=== PATIENT | male | born 1955 | race Caucasian/White ===

== ENCOUNTER 2018-06-12 06:01 | Observation (INO) | payer OTHER ==
[2018-06-12] MEDS ORDERED: ceFAZolin 2 GM/DEXTROSE 100 ML IV ONE (06:16)
[2018-06-12] MEDS ORDERED: OPIUM/BELLADONNA ALKALO SUPP PR PRN (06:16)
[2018-06-12] MEDS ORDERED: LR 1,000 ML IV ONE (06:17)
[2018-06-12] MEDS ORDERED: LIDOCAINE 2% JELLY 20 ML (UROJECT) ONE ×2 (07:06→08:22)
--- NOTE | 2018-06-12 07:23 | PDHPUP ---
History & Physical Update H&P update statement: This history and physical update is based on an assessment of the patient which was completed after admission or registration (within 24 hours), but prior to the surgery/procedure. H&P update: H&P reviewed & patient examined, no change in patient's condition since H&P completed
[2018-06-12] MEDS ORDERED: MIDAZOLAM 2 MG/2 ML VIAL ONE (07:24)
--- NOTE | 2018-06-12 07:29 | PDANEPAE ---
ANE History of Present Illness Prostate enlargement and here for TURP ANE Past Medical History - Cardiovascular History Hx Hypertension: No Hx Arrhythmias: No Hx Chest Pain: No Hx Coronary Artery / Peripheral Vascular Disease: No Hx CHF / Valvular Disease: Yes Hx Palpitations: No Cardiovascular History Comment: heart murmur - Pulmonary History Hx COPD: No Hx Asthma/Reactive Airway Disease: No Hx Recent Upper Respiratory Infection: No Hx Oxygen in Use at Home: No Hx Sleep Apnea: No Sleep Apnea Screening Result - Last Documented: Negative - Neurologic History Hx Cerebrovascular Accident: No Hx Seizures: No Hx Dementia: No - Endocrine History Hx Diabetes: No - Renal History Hx Renal Disorders: No - Liver History Hx Hepatic Disorders: No - Neurological & Psychiatric Hx Hx Neurological and Psychiatric Disorders: No - Cancer History Hx Cancer: No - Congenital Disorder History Hx Congenital Disorders: Yes Congenital History Comment: bipolar - GI History Hx Gastrointestinal Disorders: No Gastrointestinal History Comment: colonoscopy - Other Health History Other Health History: cataract sx - Chronic Pain History Chronic Pain: Yes (tendonitis) - Surgical History Prior Surgeries: colonoscopy ANE Review of Systems Review of Systems: - Exercise capacity METS (RN): 6 METS ANE Patient History - Allergies Allergies/Adverse Reactions: No Known Allergies Allergy (Verified 06/03/18 18:17) - Home Medications Home Medications: NK [No Known Home Meds] 06/03/18 [Last Taken Unknown] - NPO status NPO Since - Liquids (Date): 06/11/18 NPO Since - Liquids (Time): 21:00 NPO Since - Solids (Date): 06/11/18 NPO Since - Solids (Time): 21:00 - Smoking Hx Smoking Status: Former smoker - Family Anes Hx Family Hx Anesthesia Complications: none ANE Labs/Vital Signs - Vital Signs Blood Pressure: 128/93 Heart Rate: 61 Respiratory Rate: 16 O2 Sat (%): 97 Height: 175.26 cm Weight: 71.668 kg ANE Physical Exam - Airway Neck exam: FROM Mallampati Score: Class 2 Mouth exam: normal dental/mouth exam - Pulmonary Pulmonary: no respiratory distress, no rales or rhonchi - Cardiovascular Cardiovascular: regular rate and rhythym, no murmur, rub, or gallop - ASA Status ASA Status: II ANE Anesthesia Plan Anesthesia Plan: general endotracheal anesthesia, GA w LMA Total IV Anesthesia: Yes
[2018-06-12] MEDS ORDERED: MIDAZOLAM 2 MG/2 ML VIAL IVP ONE (07:32)
[2018-06-12] MEDS ORDERED: LIDOCAINE 2% 100 MG/5 ML SYR ONE (07:38)
[2018-06-12] MEDS ORDERED: PROPOFOL 200 MG/20 ML VIAL ONE (07:38)
[2018-06-12] MEDS ORDERED: fentaNYL 250 MCG/5 ML INJ ONE (07:38)
[2018-06-12] MEDS ORDERED: DEXAMETHASONE 4 MG/ML VIAL ONE (08:43)
[2018-06-12] MEDS ORDERED: HYDROmorphONE/DILAUDID 2 MG/ML INJ ONE (08:43)
[2018-06-12] MEDS ORDERED: ONDANSETRON 4 MG/2 ML VIAL ONE (08:43)
[2018-06-12] MEDS ORDERED: PHENYLEPHRINE HCL 100 MCG/ML SYR ONE (08:43)
[2018-06-12] MEDS ORDERED: ePHEDrine SULFATE 25 MG/5 ML SYR ONE (08:43)
--- NOTE | 2018-06-12 09:24 | POSTOPPROG ---
Post Op Note Date of Operation: 06/12/18 Surgeon: Christine Robles Anesthesiologist: Nena Anesthesia: GET(General Endotracheal) Pre-op Diagnosis: BPH w trilobar hypertrophy, LUTs Post-op Diagnosis: same Indication: BPH w trilobar hypertrophy, LUTs Procedure: cystoscopy, TURP in saline Findings: BPH w trilobar hypertrophy, LUTs Inf/Abcess present in the surg proc area at time of surgery?: No EBL: 100-500 Complications: none patient tolerated procedure well Drains: Other (hodges) Specimen(s): prostate chips
[2018-06-12] MEDS ORDERED: OPIUM/BELLADONNA ALKALO SUPP PR ONE (09:28)
[2018-06-12] MEDS ORDERED: HYDROCODONE/APAP 5/325 TAB PO PRN (09:30)
[2018-06-12] MEDS ORDERED: ONDANSETRON 4 MG/2 ML VIAL IVP PRN (09:30)
--- NOTE | 2018-06-12 12:40 | POSTANESTH ---
Post Anesthetic Evaluation Cardiovascular Status: Normal, Stable Respiratory Status: Normal, Stable Level of Consciousness/Mental Status: Can Participate in Eval, Mildly Sleepy, Arousable Pain Control: Adequate, Prn Tx Ordered Nausea/Vomiting Control: Adequate, Prn Tx Ordered Complications Possibly Related to Anesthesia: None Noted
[2018-06-12] MEDS: ceFAZolin 2 GM/DEXTROSE 100 ML IV SCH ×2 (15:48→23:31)
[2018-06-12] MEDS: D5W LR 1,000 ML IV SCH (15:48)
[2018-06-12] MEDS ORDERED: HYDROmorphONE/DILAUDID 1 MG/ML INJ IVP PRN (16:00)
[2018-06-12] MEDS: SENNOSIDES/DOCUSATE SODIUM TAB PO SCH (20:03)
[2018-06-12] MEDS: LITHIUM OROTATE PO SCH (20:08)
[2018-06-12] MEDS ORDERED: ACETAMINOPHEN 325 MG TAB PO PRN (20:44)
[2018-06-13] MEDS: D5W LR 1,000 ML IV SCH (01:18)
[2018-06-13 07:50] VITALS: BP 113/85
[2018-06-13] MEDS ORDERED: LIDOCAINE 2% JELLY 20 ML (UROJECT) UR ONE (09:00)
[2018-06-13] MEDS: SENNOSIDES/DOCUSATE SODIUM TAB PO SCH (09:01)
[2018-06-13] MEDS: ceFAZolin 2 GM/DEXTROSE 100 ML IV SCH (09:01)
[2018-06-13] MEDS: LITHIUM OROTATE PO SCH (09:02)
--- NOTE | 2018-06-13 09:05 | GOP ---
[f rep st] OPERATIVE REPORT DATE OF OPERATION: 06/12/2018 SURGEON: Christine Robles MD ANESTHESIA: General. ANESTHESIOLOGIST: Dr. Anitra Barrett. PREOPERATIVE DIAGNOSIS: Benign prostatic hypertrophy with lower urinary tract symptoms. POSTOPERATIVE DIAGNOSIS: Benign prostatic hypertrophy with lower urinary tract symptoms. PROCEDURE PERFORMED: Cystoscopy, transurethral resection of prostate in saline. FINDINGS: trilobar hypertrophy SPECIMENS: Prostate chips. ESTIMATED BLOOD LOSS: 150 mL. INDICATIONS: BPH with lower urinary tract symptoms and trilobar hypertrophy. DESCRIPTION OF PROCEDURE: The patient was seen in the preoperative holding area where the procedure was discussed again and consent verified and verification of antibiotics was ordered. He was taken back to the cystoscopy suite, placed on the cystoscopy table in the supine position. General anesthesia induced without complication. Time-out performed. Core measures satisfied, including placement of a Gwen Hugger, SCDs and administration of 2 g Ancef antibiotics. He was brought to the end of the table, placed in a dorsal lithotomy position. All pressure points padded. Genitalia draped and prepped in a standard surgical fashion with Betadine. The distal urethral meatus was dilated gently with [place] sounds up to a 28-Icelandic. Then, the 26-Icelandic visual obturator easily cannulated the urethral meatus and was advanced atraumatically in the urethra past the prostatic urethra and into the bladder. Visual confirmation made of trilobar hypertrophy with a significant central zone tissue protruding into the bladder. The resectoscope was assembled with a loop. The ureteral orifices were difficult to see due to the median lobe projecting into the bladder. Resection began at the 5 o'clock and 7 o'clock positions and the central zone was then taken down from the bladder neck to just proximal to the veru. At this point, I was easily able to see the ureteral orifices and stayed well away from these structures as to not violate these structures. I also was able to see the veru and also stayed proximal to this during the entire resection as to not violate tissue at or distal to the veru. After the posterior adenoma was taken down, attention was focused on the left lateral lobe, the right lateral lobe and then the anterior. He had quite a bit of central zone tissue and posterior zone tissue and this was the bulk of his obstruction. Then, electrocautery was used liberally throughout the procedure to maintain hemostasis. Ellik evacuator was used several times to extract the TURP chips from the bladder. At the end of the procedure, I was able to sit at the veru and look into the bladder and looked directly into the bladder without any obstruction. Hemostasis was excellent. All the chips had been removed and I felt he had a very thorough resection. The veru and UOs were evaluated and not violated with the resectoscope. The scope was removed and then lidocaine jelly placed per urethra and then a 24 three-way catheter placed without difficulty with return of light pink urine. Balloon was inflated to 40 mL of sterile water. The bladder was hand irrigated with normal saline and the irrigant was clear. Continuous bladder irrigation was then initiated and the irrigant was light pink to clear. A belladonna and opium suppository was placed and, at this point, the procedure was considered complete. He was awoken from anesthesia and transferred to PACU in good condition. COMPLICATIONS: None. The patient tolerated the procedure well. He had a Lipscomb catheter at the end. /[id number]/MODL MTDD
--- NOTE | 2018-06-13 11:04 | SOAPPROG ---
SOAP Progress Note Assessment/Plan: Assessment: s/p TURP Plan: Home w hodges, leg bag, overnight bag. Teach hodges cares. Activity restrictions reviewed. Follow up Saturday06/16/18 for hodges removal. Abx up to hodges removal. 06/13/18 11:01 Subjective: Doing well. Ambulating often. Rahel diet. CBI off, urine light pink/clear. No pain. Objective: Vital Signs Temp Pulse Resp BP Pulse Ox 37.1 C 63 16 113/85 H 95 06/13/18 07:45 06/13/18 07:45 06/13/18 07:45 06/13/18 07:45 06/13/18 07:45 06/12/18 06/13/18 06/14/18 05:59 05:59 05:59 Intake Total 3421 Output Total 64916 Balance -92121 Gen NAD A&O CV regular Lungs normal effort Abd soft Ext warm 24 3w removed, using sterile technique, 18F coude placed. Small clots irrigated out. Urine now clear. - Pending Discharge Pending Discharge Within 24 Hours: Yes Pending Discharge Date: 06/14/18 Pending Discharge Time: 11:00 ICD10 Worksheet Patient Problems: Problems Problem Status Onset BPH loc w urin obs/LUTS Acute - ICD10 Problem Qualifiers (1) BPH loc w urin obs/LUTS
== END 2018-06-13 13:21 | disposition home or self-care (01) ==
LOC: FSGY 06:01 → F1N 09:30 → F3E 11:11
PROVIDERS: ADMIT Urology; ATTEND Urology
PROC: 0VT08ZZ Resection of Prostate, Via Natural or Artificial Opening Endoscopic (ICD-10-PCS; principal; 2018-06-12 07:30)
DX: N40.1 Benign prostatic hyperplasia with lower urinary tract symptoms (principal)
CPT/HCPCS: 52601; G0378; J0690; J1100; J1170; J2001; J2250; J2370; J2405; J2704; J3010

== ENCOUNTER 2018-06-21 04:07 | Emergency (ER) | payer OTHER ==
--- NOTE | 2018-06-21 04:18 | EDPHY ---
H & P Stated Complaint: TURP WITH CATH REMOVED ON SATURDAY, NOW BLOOD AND UNABLE TO PASS URINE SINCE Time Seen by Provider: 06/21/18 04:18 HPI/ROS: HPI CHIEF COMPLAINT: Unable to urinate. HISTORY OF PRESENT ILLNESS: Patient is a very pleasant 62-year-old male, otherwise healthy had a TURP on June 12. He had his Lipscomb catheter removed on June 16. He reports that over the past few days he has noticed decreased urinary output. Trouble urinating. Tonight he last urinated a somewhat good stream around 5:00 p.m.. It is now 415 in the morning. He has tried to urinate multiple times but is unable to do so. He does report that he did see some blood in his urine earlier. He denies any fever, denies vomiting, denies back pain. Has urgency to go but unable to do so. Patient's Urologist: Dr. Rudolph. Past Medical History: BPH Past Surgical History: TURP Social History: Denies drugs alcohol tobacco. Family History: Noncontributory ROS REVIEW OF SYSTEMS: 10 Systems were reviewed and negative with the exception of the elements mentioned in the history of present illness. Exam Constitutional triage nursing summary reviewed, vital signs reviewed, awake/ alert. Eyes normal conjunctivae and sclera, EOMI, PERRLA. HENT normal inspection, atraumatic, moist mucus membranes, no epistaxis, neck supple/ no meningismus, no raccoon eyes. Respiratory clear to auscultation bilaterally, normal breath sounds, no respiratory distress, no wheezing. Cardiovascular rate normal, regular rhythm, no murmur, no edema, distal pulses normal. Gastrointestinal mild tender palpation suprapubic, no rebound, no guarding, normal bowel sounds, no distension, no pulsatile mass. Genitourinary no CVA tenderness. Musculoskeletal no midline vertebral tenderness, full range of motion, no calf swelling, no tenderness of extremities, no meningismus, good pulses, neurovascularly intact. Skin pink, warm, & dry, no rash, skin atraumatic. Neurologic awake, alert and oriented x 3, AAOx3, moves all 4 extremities equally, motor intact, sensory intact, CN II-XII intact, normal cerebellar, normal vision, normal speech. Psychiatric normal mood/affect. Heme/Lymph/Immune no lymphadenopathy. Differential Diagnosis: Includes but is not limited to in a particular order outflow obstruction, urinary retention, UTI, cystitis, blood clot causing outflow obstruction. Medical Decision Making: Plan for this patient bladder scan. Bladder scan shows over 500 cc of urine. Plan for placement of Lipscomb catheter. Send urinalysis for evaluation for infection. Plan will be for patient to go home with Lipscomb catheter follow up with Urology. Re-evaluation: Lipscomb catheter was placed over 500 cc of yellow tinged urine was removed. Patient is feeling much better. Urinalysis reviewed concerning for infection. Urine culture sent. Keflex 1st dose given in emergency room and Keflex prescription. Patient understands follow up with Urology. Patient also understands return to the emergency room if has worsening symptoms Source: Patient - Personal History Current Tetanus/Diphtheria Vaccine: Yes Current Tetanus Diphtheria and Acellular Pertussis (TDAP): Yes - Medical/Surgical History Hx Asthma: No Hx Chronic Respiratory Disease: No Hx Diabetes: No Hx Cardiac Disease: No Hx Renal Disease: No Hx Cirrhosis: No Hx Alcoholism: No Hx HIV/AIDS: No Hx Splenectomy or Spleen Trauma: No Other PMH: TURP, - Social History Smoking Status: Former smoker Constitutional: Initial Vital Signs Temperature (C) 36.6 C 06/21/18 04:12 Heart Rate 84 06/21/18 04:12 Respiratory Rate 18 06/21/18 04:12 Blood Pressure 167/100 H 06/21/18 04:12 O2 Sat (%) 98 06/21/18 04:12 O2 Delivery Mode Room Air Allergies/Adverse Reactions: No Known Allergies Allergy (Verified 06/21/18 04:15) Home Medications: Medication Instructions Recorded Lithum Orotate 5mg 5 mg PO BID 06/12/18 Acetaminophen [Tylenol 325mg (*)] 650 mg PO Q4HRS PRN #0 tab 06/13/18 Cefadroxil 500 mg PO BID #8 cap 06/13/18 Hydrocodone/APAP 5/325 [[place] 1 - 2 tab PO Q4HRS PRN #12 tab 06/13/18 5/325 (*)] Sennosides/Docusate Sodium 1 tab PO BID PRN #60 tab 06/13/18 [Senokot-S] Cephalexin [Keflex] 500 mg PO Q6H #28 cap 06/21/18 Medical Decision Making - Data Points Laboratory Results: 06/21/18 04:35 Urine Color YELLOW Urine Appearance HAZY Urine pH 6.0 (5.0-7.5) Ur Specific [place] 1.014 (1.002-1.030) Urine Protein 1+ H (NEGATIVE) Urine Ketones NEGATIVE (NEGATIVE) Urine Blood 3+ H (NEGATIVE) Urine Nitrate NEGATIVE (NEGATIVE) Urine Bilirubin NEGATIVE (NEGATIVE) Urine Urobilinogen NEGATIVE EU EU (0.2-1.0) Ur Leukocyte Esterase TRACE H (NEGATIVE) Urine RBC 50-182 /hpf H /hpf (0-3) Urine WBC 10-15 /hpf H /hpf (0-3) Ur Epithelial Cells NONE SEEN /lpf /lpf (NONE-1+) Urine Bacteria 1+ /hpf H /hpf (NONE SEEN) Urine Sperm PRESENT /hpf /hpf (NONE SEEN) Urine Glucose NEGATIVE (NEGATIVE) Medications Given: Discontinued Medications Cephalexin (Keflex 500 Mg Prepack#4) 1 btl TAKEHOME EDNOW ONE PRN Reason: Protocol Stop: 06/21/18 04:59 Last Admin: 06/21/18 05:02 Dose: 1 btl Cephalexin HCl (Keflex) 500 mg PO EDNOW ONE PRN Reason: Protocol Stop: 06/21/18 04:59 Last Admin: 06/21/18 05:02 Dose: 500 mg Lidocaine (Uroject Lidocaine 2% Jelly) 20 ml UR EDNOW ONE Stop: 06/21/18 04:25 Last Admin: 06/21/18 04:36 Dose: 20 ml Departure - Departure Disposition: Home, Routine, Self-Care Clinical Impression: Urinary obstruction UTI (urinary tract infection) Qualifiers: Urinary tract infection type: acute cystitis Hematuria presence: with hematuria Qualified Code(s): N30.01 - Acute cystitis with hematuria Condition: Good Instructions: Cephalexin (By mouth), Urinary Retention in Men (ED), Urinary Tract Infection in Men (ED) Additional Instructions: 1. Follow up with your urologist. 2. Return to the emergency room if you have worsening symptoms questions or concerns. 3. Antibiotics as prescribed. 4. Drink lots of fluids stay well-hydrated. Referrals: Jake Nieto MD [Primary Care Provider] - As per Instructions Christine Robles MD [Medical Doctor] - As per Instructions Prescriptions: Cephalexin [Keflex] 500 mg PO Q6H #28 cap
[2018-06-21] MEDS ORDERED: LIDOCAINE 2% JELLY 20 ML (UROJECT) UR ONE (04:24)
[2018-06-21] MEDS ORDERED: LIDOCAINE 2% JELLY 20 ML (UROJECT) ONE (04:24)
[2018-06-21] MEDS ORDERED: CEPHALEXIN 500 MG CAP PO ONE (04:58)
[2018-06-21] MEDS ORDERED: CEPHALEXIN 500MG PREPACK#4 BTL TAKEHOME ONE (04:58)
[2018-06-21 05:29] VITALS: BP 144/102
== END 2018-06-21 05:29 | disposition home or self-care (01) ==
PROC: 0T9B70Z Drainage of Bladder with Drainage Device, Via Natural or Artificial Opening (ICD-10-PCS; principal; 2018-06-21)
PROC: 4A0D7LZ Measurement of Urinary Volume, Via Natural or Artificial Opening (ICD-10-PCS; 2018-06-21)
DX: N30.01 Acute cystitis with hematuria (principal); N13.9 Obstructive and reflux uropathy, unspecified